=== PATIENT | male | born 1980 | race African-American/Black ===

== ENCOUNTER 2018-11-02 10:18 | Inpatient (IN) | payer OTHER ==
[2018-11-02 10:35] VITALS: BMI 27.3
--- NOTE | 2018-11-02 11:13 | HP ---
CIWA Score Nausea/Vomitin Muscle Tremors: None Anxiety: 2 Agitation: 0-Normal Activity Paroxysmal Sweats: No Perspiration Orientation: 0-Oriented Tacttile Disturbances: 0-None Auditory Disturbances: 0-None Visual Disturbances: 2-Mild Sensitivity Headache: 0-None Present CIWA-Ar Total Score: 6 - Admission Criteria OASAS Guidelines: Admission for Medically Managed Detox: Requires at least one of the followin. CIWA greater than 12 2. Seizures within the past 24 hours 3. Delirium tremens within the past 24 hours 4. Hallucinations within the past 24 hours 5. Acute intervention needed for co occurring medical disorder 6. Acute intervention needed for co occurring psychiatric disorder 7. Severe withdrawal that cannot be handled at a lower level of care (continued vomiting, continued diarrhea, abnormal vital signs) requiring intravenous medication and/or fluids 8. Admission ROS [facility] Allergies/Adverse Reactions: Allergies Allergy/AdvReac Type Severity Reaction Status Date / Time aspirin Allergy Severe Rash Verified 11/02/18 12:36 mitch castañeda Allergy Severe Rash Verified 11/02/18 12:36 History of Present Illness: patient here requesting detox from etoh use , reports 2 x 6-pk /day , current symptoms as above, latest use yesterday morning , reports abdominal cramps if not drinking , sometimes tremors, " I might throw up " , reports he starts drinking in the mornings . Reports has been drinking heavily x 5 years , has not been to detox prior , [facility] , on maintenance Suboxone 4 mg q d , latest taken Thursday , denies symptoms at this time . Planning to go to rehab and long-term . Denies suicidal ideation or attempts. Patient Name: Bhavna Edgar Date: 1980 Address: [address] [place] [address] Sex: Male Rx Written Rx Dispensed Drug Quantity Days Supply Prescriber Name 11/02/2017 11/06/2017 suboxone 8 mg-2 mg sl film 14 7 Perez, Allareddy V K tobacco : 7 cigs /day utox + thc, shantell , Bup cocaine : 30 $/day cannabis :10 $ /day PMHx : denies PSHX : denies Psych : depression, anxiety , no meds Exam Limitations: No Limitations - Ebola screening Have you traveled outside of the country in the last 21 days: No Have you had contact with anyone from an Ebola affected area: No Have you been sick,other than usual withdrawal symptoms: No - Review of Systems Constitutional: See HPI EENT: reports: No Symptoms Reported Respiratory: reports: No Symptoms reported Cardiac: reports: No Symptoms Reported GI: reports: No Symptoms Reported : reports: No Symptoms Reported Musculoskeletal: reports: No Symptoms Reported Integumentary: reports: No Symptoms Reported Neuro: reports: No Symptoms reported Endocrine: reports: No Symptoms Reported Psychiatric: reports: Orientated x3 Patient History - Smoking Cessation Smoking history: Current every day smoker Have you smoked in the past 12 months: Yes Hx Chewing Tobacco Use: No Initiated information on smoking cessation: No - Substances Abused Cocaine Route: Inhalation Frequency: Daily Amount used: $20 Age of first use: 24 Date of Last Use: 10/31/18 Alcohol-beer Route: Oral Frequency: Daily Amount used: 2-6 pks. Age of first use: 16 Date of Last Use: 11/01/18 Marijuana Route: Smoking Frequency: Daily Amount used: $20 Age of first use: 23 Date of Last Use: 11/01/18 Family Disease History - Family Disease History Family History: Denies Admission Physical Exam S - Vital Signs Vital Signs: Vital Signs - 24 hr 11/02/18 10:34 Temperature 97.9 F Pulse Rate 84 Respiratory 18 Rate Blood Pressure 108/60 - Physical General Appearance: Yes: No Apparent Distress HEENTM: Yes: EOMI, Normocephalic, Normal Voice Respiratory: Yes: Chest Non-Tender, Lungs Clear, Normal Breath Sounds Neck: Yes: No masses,lesions,Nodules, Trachea in good position Breast: Yes: Breast Exam Deferred Cardiology: Yes: Regular Rhythm, Regular Rate, S1, S2 Abdominal: Yes: Normal Bowel Sounds, Soft Genitourinary: Yes: Within Normal Limits Back: Yes: Normal Inspection Musculoskeletal: Yes: full range of Motion, Gait Steady Extremities: Yes: Non-Tender Neurological: Yes: Fully Oriented Integumentary: Yes: Normal Color, Dry, Warm - Diagnostic (1) Cocaine dependence Current Visit: Yes Status: Chronic Qualifiers: Substance use status: uncomplicated Qualified Code(s): F14.20 - Cocaine dependence, uncomplicated (2) Nicotine dependence Current Visit: Yes Status: Chronic Qualifiers: Nicotine product type: cigarettes (3) Cannabis dependence Current Visit: Yes Status: Chronic (4) Opioid dependence on agonist therapy Current Visit: Yes Status: Chronic (5) Alcohol dependence Current Visit: Yes Status: Acute Qualifiers: Substance use status: uncomplicated Qualified Code(s): F10.20 - Alcohol dependence, uncomplicated [facility] Breath Alcohol Content Breath Alcohol Content: 0 Urine Drug Screen - Results Drug Screen Negative: No Urine Drug Screen Results: THC-Marijuana, SHANTELL-Cocaine, BUP-Suboxone Inpatient Rehab Admission - Initial Determination Are CD services needed?: Yes Free of communicable disease: Yes Not in need of hospitalization: Yes - Rehab Admission Criteria Previous failed treatment: Yes Poor recovery environment: Yes Comorbidities: Yes Lacks judgement: Yes Patient is meeting Inpatient Rehab admission criteria:: Yes
[2018-11-02] MEDS ORDERED: ACETAMINOPHEN 325 MG TABLET (FP) PO PRN (12:34)
[2018-11-02] MEDS ORDERED: guaiFENesin/D-METHORPHAN HB 10 ML UNIT-DOSE CUPS PO PRN (12:34)
[2018-11-02] MEDS ORDERED: MAGNESIUM CITRATE 300 ML BOTTLE PO PRN (12:34)
[2018-11-02] MEDS ORDERED: MAG HYDROX/AL HYDROX/SIMETH 30 ML UNIT-DOSE CUP PO PRN (12:34)
[2018-11-02] MEDS ORDERED: MAGNESIUM HYDROX 2400MG/30ML ORAL SUSPENSION 30 ML CUP PO PRN (12:34)
[2018-11-02] MEDS ORDERED: MENTHOL/PHENOL 1 EACH UD MM PRN (12:34)
[2018-11-02] MEDS ORDERED: P-EPHED 60MG/TRIPROLIDI 2.5MG TABLET PO PRN (12:34)
[2018-11-02 15:15] LABS: HEMATOCRIT 38.2 % (35.4-49); MCH 26.7 pg (25.7-33.7); MCHC 31.3 g/dl (32.0-35.9); MEAN CELL VOLUME 85.2 fl (80-96); MEAN PLT VOLUME 8.4 fl (7.5-11.1); PLATELET COUNT 280 K/MM3 (134-434); RBC 4.48 M/mm3 (4.00-5.60); WHITE BLOOD COUNT 8.1 K/mm3 (4.0-10.0)
[2018-11-02] MEDS ORDERED: TUBERCULIN PPD 5 TU/0.1ML VIAL ID ONE (15:18)
[2018-11-02] MEDS: BUPRENORPHINE/NALOXONE 2 MG/0.5 MG FILM PACKET SL SCH (15:19)
[2018-11-02] MEDS ORDERED: NICOTINE POLACRILEX 2 MG GUM BUC PRN (15:29)
[2018-11-02 15:54] LABS: ALBUMIN 3.4 g/dl (3.4-5.0); ALK PHOS 92 U/L (45-117); ANION GAP 7 MMOL/L (8-16); BILIRUBIN,TOTAL 0.2 mg/dL (0.2-1); BLOOD UREA NITROGEN 9 mg/dL (7-18); CALCIUM 8.7 mg/dL (8.5-10.1); CHLORIDE 107 mmol/L (98-107); CO2 27 mmol/L (21-32); GLUCOSE,RANDOM 134 mg/dL (74-106); SGOT/AST 22 U/L (15-37); SGPT/ALT 27 U/L (13-61); SODIUM 141 mmol/L (136-145); TOT PROT 7.4 g/dl (6.4-8.2)
--- NOTE | 2018-11-02 16:03 | HP ---
Psychiatrist Admission - Data Date of interview: 11/02/18 Admission source: [facility] Identifying data: Patient is a 38 year old single male without children, unemployed (denies receiving financial assistance) and is currently homeless. This is patient's first admission to rehab at [facility]. Patient admitted to for alcohol, cocaine, and K2 dependence. Medical History: Denies. Endorses good health. Psychiatric History: Patient's first psychiatric contact was as a child to address behavior problems. He reports seeing the psychiatrist for several months but was not prescribed psychotropic medications. Next time he saw a psychiatrist again was as an adult. He reports one psychiatric hospitalization in 2017 at [facility] secondary to a suicide attempt by attempting to hang himself inside a [facility] police precinct after he was arrested for shop lifting. He was diagnosed with depression and discharged on abilify 10mg +lexapro 10mg. Mr. Edgar reports seeing multiple outpatient psychiatrist throughout adulthood. He denies current outpatient psychiatric care. In addition to accepting lexapro and abilify, he reports past history of accepting seroquel and trazodone. He receives prescriptions refills from the [facility] at [facility]. Most recent prescription of abilifty 10mg + Lexapro 10mg was electronically sent to patient' s pharmacy in June of 2018. At present, Mr. Edgar reports feeling "ok". He states his mood is stable and denies psychotic symptoms. Mr. Edgar is agreeable to resuming medications. Physical/Sexual Abuse/Trauma History: denies. Vital Signs: Vital Signs - 24 hr 11/02/18 10:34 Temperature 97.9 F Pulse Rate 84 Respiratory 18 Rate Blood Pressure 108/60 Allergies/Adverse Reactions: Allergies Allergy/AdvReac Type Severity Reaction Status Date / Time aspirin Allergy Severe Rash Verified 11/02/18 12:36 mitch castañeda Allergy Severe Rash Verified 11/02/18 12:36 Date of last physical exam: 11/02/18 Concur with the findings of this exam: Yes - Substance Abuse/Tx History Hx Alcohol Use: Yes (2 six packs per day) Hx Substance Use: Yes (Cocaine- $50 per day K2-two -three blunts per day) Substance Use Type: Cocaine Hx Substance Use Treatment: Yes ([facility] (August 2017)) Mental Status Exam - Mental Status Exam Alert and Oriented to: Time, Place, Person Cognitive Function: Good Patient Appearance: Unkempt (Malodorous) Mood: Euthymic Affect: Mood Congruent, Constricted Patient Behavior: Cooperative Speech Pattern: Clear, Appropriate Voice Loudness: Normal Thought Process: Intact, Goal Oriented Hallucinations: Denies Suicidal Ideation: Denies Homicidal Ideation: Denies Insight/Judgement: Poor Sleep: Poorly Appetite: Fair Muscle strength/Tone: Normal Gait/Station: Normal Psychiatric Findings - Problem List ([place] 1, 2,3) (1) Substance induced mood disorder Current Visit: Yes Status: Acute (2) Alcohol dependence Current Visit: Yes Status: Acute Qualifiers: Substance use status: uncomplicated Qualified Code(s): F10.20 - Alcohol dependence, uncomplicated (3) Opioid dependence on agonist therapy Current Visit: Yes Status: Chronic (4) Cannabis dependence Current Visit: Yes Status: Chronic (5) Cocaine dependence Current Visit: Yes Status: Chronic Qualifiers: Substance use status: uncomplicated Qualified Code(s): F14.20 - Cocaine dependence, uncomplicated (6) Depressive disorder Current Visit: Yes Status: Chronic - Initial Treatment Plan Initial Treatment Plan: Psychoeducation provided. Rehab in progress. Will restart lexapro 10mg + Abilify 10mg. Benefits and side effects discussed. Verbal consent given.
[2018-11-02] MEDS: NICOTINE 14 MG/24 HOURS TOPICAL PATCH TD SCH (17:57)
[2018-11-02] MEDS ORDERED: MELATONIN 5 MG TABLETS PO PRN (22:00)
[2018-11-02] MEDS ORDERED: THIAMINE HCL 100 MG TABLET (FP) PO SCH (22:00)
[2018-11-03 07:05] VITALS: TEMP 98.2
[2018-11-03] MEDS ORDERED: cloNIDine HCL 0.1 MG TABLET PO ONE (07:15)
--- NOTE | 2018-11-03 07:17 | PN ---
[facility] Progress Note Note: bp151/[id number] compliant,withdrawal symptom,clonidine 0.1 mg po ordered,, close monitoring with vital signs monitoring
[2018-11-03] MEDS: NICOTINE 14 MG/24 HOURS TOPICAL PATCH TD SCH (09:54)
[2018-11-03] MEDS: BUPRENORPHINE/NALOXONE 2 MG/0.5 MG FILM PACKET SL SCH (09:54)
[2018-11-03 09:59] VITALS: BP 139/79; PULSE 63
[2018-11-03] MEDS ORDERED: ESCITALOPRAM OXALATE 10 MG TABLET (FP) PO SCH (10:00)
[2018-11-03] MEDS ORDERED: ARIPiprazole 10 MG TABLET PO SCH (10:00)
[2018-11-03] MEDS ORDERED: PRENATAL VITAMINS W/ FOLIC ACID TABLET (FP) PO SCH (10:00)
== END 2018-11-03 10:10 | disposition left against medical advice (07) | DRG 770 ==
LOC: YASAS 10:18 → Y3W 13:05
PROVIDERS: ADMIT Psychiatry & Neurology Psychiatry; ATTEND Psychiatry & Neurology Psychiatry
PROC: HZ42ZZZ Group Counseling for Substance Abuse Treatment, Cognitive-Behavioral (ICD-10-PCS; principal; 2018-11-02)
DX: F10.20 Alcohol dependence, uncomplicated (principal); F11.20 Opioid dependence, uncomplicated; F14.20 Cocaine dependence, uncomplicated; F12.20 Cannabis dependence, uncomplicated; F17.210 Nicotine dependence, cigarettes, uncomplicated; F32.9 Major depressive disorder, single episode, unspecified; Z88.6 Allergy status to analgesic agent
CPT/HCPCS: 36415; 80053; 85027; 86593; J0735